=== PATIENT | male | born 1990 | race Caucasian/White ===

== ENCOUNTER 2021-06-19 05:07 | Emergency (ER) | payer OTHER, MEDICAID ==
[~2021-06-19] VITALS: Ht 180.3 cm; Wt 68.0 kg
--- NOTE | 2021-06-19 05:09 | NUR ---
PT XI BLS. TAKEN TO BED 10
[2021-06-19 05:18] VITALS: BP 143/84
--- NOTE | 2021-06-19 05:21 | NUR ---
30 YEAR OLD MALE XI. COMPLAINING OF RIGHT FLANK PAIN FOR 2.5 HOURS THAT WOKE HIM OUT OF HIS SLEEP. RATES PAIN 10/10. PT STATES THAT HE WENT TO THE URGENT CARE LAST NIGHT AND LEFT WITHOUT BEING SEEN. PT REPORTS THAT HE THEN WENT TO [facility] WHERE HE WAS TOLD HE THERE WAS NOT A ROOM FOR HIM AND THEN HE CALLED 911. PT REPORTS DARK COLORED URINE SINCE LAST NIGHT. PT HAS A 20 G RIGHT HAND IV THAT WAS INSERTED BY EMS. PT RECIEVED 100 MICS FENTANYL IN THE FIELD PER EMS. PT RECIEVED 100 ML OF NS IN FIELD PER EMS. PT DENIES MEDICAL, SURGICAL HX. DENIES ANY HOME MEDICATIONS. CONTINUES TO YELL OUT SAYING "GIVE ME PAIN MEDICINE, I CANNOT HOLD ON ANY LONGER." "NURSE, NURSE, NURSE". NOTIFIED OF PT PAIN. PT PLACED ON MONITORS. NO ACUTE DISTRESS NOTED AT THIS TIME. WILL CONTINUE TO MONITOR PT.
[2021-06-19] MEDS ORDERED: MORPHINE SULFATE 2 MG/ML SYR IVP ONE ×2 (05:35→08:10)
[2021-06-19] MEDS ORDERED: NACL 0.9% 1,000 ML IV SCH (05:35)
[2021-06-19] MEDS ORDERED: KETOROLAC 30 MG/ML VIAL IVP ONE (05:35)
[2021-06-19] MEDS ORDERED: ONDANSETRON 4 MG/2 ML VIAL IVP ONE (05:35)
--- NOTE | 2021-06-19 05:47 | NUR ---
PT AWARE THAT MD REQUESTS URINE SAMPLE. EMT TO ROOM TO GIVE PT URINAL TO COLLECT SAMPLE.
--- NOTE | 2021-06-19 05:56 | NUR ---
PT TO CT VIA WHEELCHAIR.
--- NOTE | 2021-06-19 05:57 | NUR ---
Bob cheung in [facility] - 06/19/21 at 0557 by HILARIO PT TAKEN TO CT
--- NOTE | 2021-06-19 06:15 | NUR ---
PT REQUESTS WATER TO HELP HIM "GO TO THE BATHROOM" TO OBTAIN URINE SPECIMEN.
[2021-06-19 06:49] LABS: BASOPHILS % (AUTO) 0.4 % (0.0-2.0); EOSINOPHILS % (AUTO) 0.1 % (0.0-4.0); HEMOGLOBIN 13.1 g/dL (12.0-18.0); LYMPHOCYTES # (AUTO) 0.8 K/uL (2.0-11.5); MEAN CORPUSCULAR HEMOGLOBIN 24 pg (27-31); MEAN CORPUSCULAR HGB CONC 32 g/dL (33-37); MEAN CORPUSCULAR VOLUME 74.5 fL (80-94); MONOCYTES # (AUTO) 0.5 K/uL (0.8-1.0); MONOCYTES % (AUTO) 5.8 % (1.7-9.3); NEUTROPHILS # (AUTO) 7.3 K/uL (1.8-7.7); NEUTROPHILS % (AUTO) 84.7 % (42.2-75.2); PLATELET COUNT (AUTO) 217 K/uL (140-450); RED CELL DISTRIBUTION WIDTH 13.3 % (11.6-13.7); WHITE BLOOD COUNT (AUTO) 8.6 K/uL (4.8-10.8)
[2021-06-19 07:08] LABS: ALBUMIN 3.8 g/dL (3.4-5.0); CARBON DIOXIDE 19.9 mmol/L (21-32); CREATININE 0.9 mg/dL (0.6-1.3); POTASSIUM 3.9 mmol/L (3.5-5.1); TOTAL BILIRUBIN 0.8 mg/dL (0.0-1.0)
--- NOTE | 2021-06-19 07:12 | NUR ---
REPORT GIVEN TO [facility] [employer] TO ASSUME CARE OF PT.
--- NOTE | 2021-06-19 07:12 | NUR ---
REPORT RECEIVED FROM [facility] FOR CONTINUITY OF CARE
--- NOTE | 2021-06-19 08:05 | NUR ---
Urine sample sent to lab with Joyce MCCAIN
[2021-06-19] MEDS ORDERED: TAMS0.4C96 PO (08:18)
[2021-06-19] MEDS ORDERED: KETO10TA2 PO (08:18)
[2021-06-19] MEDS ORDERED: ONDA-188 SL (08:18)
[2021-06-19 08:41] VITALS: BP 124/77
--- NOTE | 2021-06-19 08:41 | NUR ---
Patient discharged with v/s stable. Written and verbal after care instructions given and explained. Patient alert, oriented and verbalized understanding of instructions. Ambulatory with steady gait. All questions addressed prior to discharge. ID band removed. IV Discontinued. Patient advised to follow up with PMD. Rx of KETOROLAC TROMETHAMINE, ZOFRAN, AND FLOMAX given. Patient educated on indication of medication including possible reaction and side effects. Opportunity to ask questions provided and answered.
[2021-06-19 08:46] LABS: APPEARANCE,URINE HAZY (CLEAR); BILIRUBIN,URINE 2+ (NEGATIVE); BLOOD, URINE 3+ (NEGATIVE); COLOR,URINE BROWN (YELLOW); LEUKOCYTE ESTERASE ,URINE NEGATIVE (NEGATIVE); NITRITE, URINE POSITIVE (NEGATIVE); PH,URINE 5.5 (5.0-9.0); UGLUCOSE NEGATIVE (NEGATIVE)
[2021-06-19 08:51] LABS: RBC,URINE TOO NUMEROUS TO COUN /HPF (0-5); WBC,URINE 0-5 /HPF (0-5)
[2021-06-19 09:04] LABS: CALCIUM OXALATE CRYSTALS,UR 0-10 /HPF (None Seen)
== END 2021-06-19 08:41 | disposition home or self-care (01) ==
LOC: MED 05:07
DX: N20.1 Calculus of ureter (principal); R11.2 Nausea with vomiting, unspecified
CPT/HCPCS: 36415; 74176; 80053; 81001; 83690; 85025; 87086; 96361; 96374; 96375; 96376; 99284; J1885; J2270; J2405; J7030; 81002